=== PATIENT | female | born 1990 | race Caucasian/White ===

== ENCOUNTER → 2016-11-09 | Outpatient (CLI) | payer BC ==
[~2016-11-09] MED LIST: COLACE 100MG C100 MG PO; IBUPROFEN600 MG PO; NORCO 5-325 TA1 EACH PO
[2016-11-09 09:40] LABS: HEMOGLOBIN 12.1 gm/dl (12.3-15.3); RED BLOOD COUNT 4.09 M/UL (4.00-5.10); WHITE BLOOD COUNT 7.5 K/UL (4.5-11.0)
[2016-11-09 10:00] LABS: BUN/CREATININE RATIO 34 (0-10)
== END ==
LOC: LAB 08:57
PROVIDERS: Internal Medicine
DX: I10 Essential (primary) hypertension (principal); Z79.899 Other long term (current) drug therapy
CPT/HCPCS: 36415; 80053; 82088; 83835; 84244; 84439; 84443; 85025

== ENCOUNTER → 2016-11-09 | Outpatient (CLI) | payer BC | LOC: KOH-I 08:00 | DX: N10 Acute pyelonephritis (principal) | CPT/HCPCS: 93975 ==

== ENCOUNTER → 2016-11-10 | Outpatient (CLI) | payer BC | LOC: LBRF 16:08 | DX: I10 Essential (primary) hypertension (principal) | CPT/HCPCS: 82570; 83497 ==

== ENCOUNTER → 2022-03-06 | Outpatient (CLI) | payer BC ==
[~2022-03-06] MED LIST changes: +LORTAB 5-325 M1 EACH PO; +PRENATAL VITAM1 EAC8 PO
== END ==
LOC: RAD 09:56
DX: D72.829 Elevated white blood cell count, unspecified (principal)
CPT/HCPCS: 71046